=== PATIENT | female | born 1980 | race Caucasian/White ===

== ENCOUNTER 2017-11-25 00:25 | Emergency (ER) | payer SELFPAY | END 2017-11-25 00:53 | disposition home or self-care (01) | LOC: ERS 00:25 | DX: H66.91 Otitis media, unspecified, right ear (principal); H61.21 Impacted cerumen, right ear; G43.909 Migraine, unspecified, not intractable, without status migrainosus; F41.9 Anxiety disorder, unspecified; F17.210 Nicotine dependence, cigarettes, uncomplicated | CPT/HCPCS: 99283 ==

== ENCOUNTER 2018-02-06 20:19 | Emergency (ER) | payer SELFPAY ==
--- NOTE | 2018-02-06 21:09 | RAD ---
RIGHT ANKLE THREE VIEWS: HISTORY: Injury with pain. FINDINGS: There are degenerative changes at the ankle with mild spurring at the tibiotalar joint. There is no evidence of fracture. IMPRESSION: No evidence of acute fracture. POS: [facility]
== END 2018-02-06 21:39 | disposition home or self-care (01) ==
LOC: SCSER 20:19
DX: S93.401A Sprain of unspecified ligament of right ankle, initial encounter (principal); G43.909 Migraine, unspecified, not intractable, without status migrainosus; I10 Essential (primary) hypertension; F41.9 Anxiety disorder, unspecified; F17.210 Nicotine dependence, cigarettes, uncomplicated; X50.1XXA Overexertion from prolonged static or awkward postures, initial encounter

== ENCOUNTER 2018-06-21 20:15 | Emergency (ER) | payer SELFPAY ==
[2018-06-21] MEDS ORDERED: Meclizine HCl 25 MG TAB ONE (21:04)
[2018-06-21] MEDS ORDERED: Metoclopramide HCl 10 MG/2 ML VIAL ONE (21:05)
[2018-06-21] MEDS ORDERED: diphenhydrAMINE 50 MG/ML VIAL ONE (21:05)
--- NOTE | 2018-06-21 21:22 | CT ---
CT BRAIN 07/01/18 PROVIDED CLINICAL HISTORY: Headache. FINDINGS: Comparison is made with the study dated 09/03/07. The ventricular system appears normal in size and morphology. There is no evidence for intracranial h emorrhage or mass effect. The extracranial soft tissues and osseous structures demonstrate an unremar kable CT appearance. IMPRESSION: No evidence for intracranial hemorrhage or mass effect. POS: [facility]
== END 2018-06-21 22:45 | disposition home or self-care (01) ==
LOC: SCSER 20:15
DX: R42 Dizziness and giddiness (principal); R51 Headache; R11.0 Nausea; I10 Essential (primary) hypertension; F41.9 Anxiety disorder, unspecified; F17.210 Nicotine dependence, cigarettes, uncomplicated
CPT/HCPCS: 70450; 87804; 96365; J1200; J2765